=== PATIENT | female | born 1965 | race Caucasian/White ===

== ENCOUNTER 2017-05-09 09:00 | Emergency (ER) | payer OTHER ==
[2017-05-09 09:05] VITALS: O2SAT 98
--- NOTE | 2017-05-09 09:29 | EDPHY ---
HPI/HX/ROS/PE/MDM Narrative: CHIEF COMPLAINT: Facial swelling HPI: The patient is a 52 y/o female complaining of facial swelling onset 2 days ago following a laser procedure at a spa. She describes having a "capillary zapping procedure" on both cheeks at [facility] 3 days ago. She developed pain and swelling by Wednesday and called the facility to discuss her symptoms. She was told it's not typical to have persistent swelling, but that she should improve by day 2. Her swelling and pain has increased and is now located on both cheeks and around both eyes. She denies treatment with any type of medication before or after the procedure. No associated systemic symptoms, fever, rash, airway swelling, or dyspnea. She cannot identify any other precipitating causes for her symptoms and she has never had facial swelling before. REVIEW OF SYSTEMS: Aside from elements discussed in the HPI, a comprehensive 10-point review of systems was reviewed and is negative. PMH: Hypothyroidism, insomnia SOCIAL HISTORY: Lives in [place], , not employed. PHYSICAL EXAM: General:Patient is alert, in no acute distress. Face: Scattered erythematous patches on both cheeks, diffuse facial swelling, no evidence of abscess ENT:Eyes are normal to inspection. ENT inspection normal. No angioedema. Uvula midline. No mucous membrane involvement. Neck: Normal inspection. Full range of motion. Respiratory:No respiratory distress. Breath sounds normal bilaterally. No wheezes or stridor. Cardiovascular: Regular rate and rhythm. Strong peripheral pulses. Normal cap refill. Abdomen:The abdomen is nontender to palpation. There are no peritoneal signs. Back: Normal to inspection. No tenderness to palpation. Skin: Normal color. No rash. Warm and dry. Extremities: Normal appearance. Full range of motion. Neuro: Oriented x3. Normal motor function. Normal sensory function. ED Course: This is a healthy 52 y/o female who presents with a 2-day history of facial swelling secondary to a cosmetic facial laser procedure 3 days ago. She has no systemic symptoms or evidence of respiratory distress. Basic labs are unremarkable. She will be discharged with a script for prednisone and recommendation to follow up with her PCP for unimproved symptoms. Return precautions given. - Data Points Laboratory Results: Laboratory Results 05/09/17 09:28 05/09/17 09:28 05/09/17 05/09/17 09:28 09:28 WBC 4.23 10^3/uL 10^3/uL (3.80-9.50) RBC 4.29 10^6/uL 10^6/uL (4.18-5.33) Hgb 13.2 g/dL g/dL (12.6-16.3) Hct 40.1 % % (38.0-47.0) MCV 93.5 fL fL (81.5-99.8) MCH 30.8 pg pg (27.9-34.1) MCHC 32.9 g/dL g/dL (32.4-36.7) RDW 13.0 % % (11.5-15.2) Plt Count 206 10^3/uL 10^3/uL (150-400) MPV 9.9 fL fL (8.7-11.7) Neut % (Auto) 46.8 % % (39.3-74.2) Lymph % (Auto) 36.2 % % (15.0-45.0) [place] % (Auto) 9.2 % % (4.5-13.0) Eos % (Auto) 5.4 % % (0.6-7.6) Baso % (Auto) 1.7 % % (0.3-1.7) Nucleat RBC Rel Count 0.0 % % (0.0-0.2) Absolute Neuts (auto) 1.98 10^3/uL 10^3/uL (1.70-6.50) Absolute Lymphs (auto) 1.53 10^3/uL 10^3/uL (1.00-3.00) Absolute Monos (auto) 0.39 10^3/uL 10^3/uL (0.30-0.80) Absolute Eos (auto) 0.23 10^3/uL 10^3/uL (0.03-0.40) Absolute Basos (auto) 0.07 10^3/uL 10^3/uL (0.02-0.10) Absolute Nucleated RBC 0.00 10^3/uL 10^3/uL (0-0.01) Immature Gran % 0.7 % % (0.0-1.1) Immature Gran # 0.03 10^3/uL 10^3/uL (0.00-0.10) Sodium 136 mEq/L mEq/L (134-144) Potassium 4.4 mEq/L mEq/L (3.5-5.2) Chloride 107 mEq/L mEq/L (97-110) Carbon Dioxide 20 mEq/l L mEq/l (22-31) Anion Gap 9 mEq/L mEq/L (8-16) BUN 9 mg/dL mg/dL (7-23) Creatinine 0.9 mg/dL mg/dL (0.6-1.0) Estimated GFR > 60 Glucose 86 mg/dL mg/dL (70-100) Calcium 9.1 mg/dL mg/dL (8.5-10.4) General Time Seen by Provider: 05/09/17 09:06 Initial Vital Signs: Initial Vital Signs Temperature (C) 36.8 C 05/09/17 09:02 Heart Rate 83 05/09/17 09:02 Respiratory Rate 18 05/09/17 09:02 Blood Pressure 103/77 05/09/17 09:02 O2 Sat (%) 98 05/09/17 09:02 O2 Delivery Mode Room Air Allergies/Adverse Reactions: penicillin V potassium [From Pen-Vee K] Allergy (Intermediate, Verified 09:02) "trouble breathing" as infant Home Medications: Medication Instructions Recorded SYNTHROID 12/26/09 Seroquel 12/26/09 predniSONE 60 mg PO DAILY #9 tab 05/09/17 Departure - Departure Disposition: Home, Routine, Self-Care Clinical Impression: Facial swelling Condition: Good Instructions: Edema (ED) Additional Instructions: 1. Take prednisone as prescribed for swelling. 2. Follow up with your primary care provider tomorrow without fail. 3. Return to the ED tomorrow if symptoms have not improved or if you develop throat swelling, fever, difficulty breathing, or other worsening of condition. Referrals: NONE *PRIMARY CARE P,. [Primary Care Provider] - As per Instructions Howard Vora MD [Medical Doctor] - As per Instructions Prescriptions: predniSONE 60 mg PO DAILY #9 tab Report Scribed for: Javier Tucker Report Scribed by: Arlet Anaya Date of Report: 05/09/17 Time of Report: 09:35 Physician Review and Approval Statement: Portions of this note were transcribed by an ED scribe. I personally performed the history, physical exam, and medical decision making; and confirm the accuracy of the information in the transcribed note.
[2017-05-09 09:33] LABS: % IMMATURE GRANULYOCYTES 0.7 % (0.0-1.1); ABSOLUTE IMMATURE GRANULOCYTES 0.03 10^3/uL (0.00-0.10); ADD DIFF? NO; ADD MORPH? NO; ADD SCAN? NO; ATYPICAL LYMPHOCYTE FLAG 20 (0-99); FRAGMENT RBC FLAG 0 (0-99); HEMATOCRIT 40.1 % (38.0-47.0); HEMOGLOBIN 13.2 g/dL (12.6-16.3); LEFT SHIFT FLG 0 (0-99); LIPEMIA HEMOLYSIS FLAG 80 (0-99); MEAN CELL HEMOGLOBIN 30.8 pg (27.9-34.1); MEAN CELL HEMOGLOBIN CONCENTR. 32.9 g/dL (32.4-36.7); MEAN CELL VOLUME 93.5 fL (81.5-99.8); MEAN PLATELET VOLUME 9.9 fL (8.7-11.7); PLATELET CLUMPS FLAG 0 (0-99); PLATELET COUNT 206 10^3/uL (150-400); RED BLOOD CELL COUNT 4.29 10^6/uL (4.18-5.33)
[2017-05-09 09:47] LABS: ANION GAP 9 mEq/L (8-16); CALCIUM 9.1 mg/dL (8.5-10.4); CARBON DIOXIDE 20 mEq/l (22-31); CHLORIDE 107 mEq/L (97-110); CREATININE 0.9 mg/dL (0.6-1.0); GLOMERULAR FILTRATION RATE > 60; GLUCOSE 86 mg/dL (70-100); POTASSIUM 4.4 mEq/L (3.5-5.2); SODIUM 136 mEq/L (134-144)
[2017-05-09] MEDS ORDERED: predniSONE 20 MG TAB PO ONE (10:03)
[2017-05-09 10:46] VITALS: BP 110/72; PULSE 78; RESP 16; TEMP 97.7
== END 2017-05-09 10:46 | disposition home or self-care (01) ==
DX: R22.0 Localized swelling, mass and lump, head (principal)

== ENCOUNTER 2017-06-13 11:17 | Emergency (ER) | payer OTHER ==
[2017-06-13 11:23] VITALS: PULSE 86; TEMP 98.2
--- NOTE | 2017-06-13 11:56 | EDPHY ---
H & P Time Seen by Provider: 06/13/17 11:33 HPI/ROS: Chief complaint. Sore throat HPI. 52-year-old female presents with sore throat for 4 days. She was seen at urgent care 2 days ago and started on a Z-Sohail despite negative strep screen. Her sore throat continues and getting worse. Hurts to swallow. Denies fever and chills. No cough. No known exposures. She feels she has swelling deeper in her throat. She noted white spots on the back of her throat. ROS Constitutional. no fever/chills, no weakness Eyes. no problems with vision ENT. Sore throat Cardiovascular. no chest pain Respiratory. no shortness of breath, no cough Abdominal. no abdominal pain, no nausea/vomiting, no diarrhea . no problems urinating MS. no calf pain/swelling, no neck/back pain, no joint pain Skin. no rash Lymph. no swollen glands Neuro. no headache, no dizziness, no difficulty walking or with speech Past Medical/Surgical History: Hypothyroid, insomnia Social History: , nonsmoker, no alcohol Smoking Status: Former smoker Physical Exam: General Appearance: Alert pleasant well-developed female mild distress vital signs are stable. Afebrile Eyes: Pupils equal and round no pallor or injection. ENT, tympanic membranes are normal. Pharynx is injected without exudate. No evidence of peritonsillar abscess. No stridor. She is swallowing secretions. Respiratory: There are no retractions, lungs are clear to auscultation. Cardiovascular: Regular rate and rhythm. Gastrointestinal: Abdomen is soft and nontender, no masses, bowel sounds normal. Neurological: Awake and alert, sensory and motor exams grossly normal. Skin: Warm and dry, no rashes. Musculoskeletal: Neck is supple nontender. Extremities symmetrical, full range of motion. Psychiatric: Patient is oriented X 3, there is no agitation. Constitutional: Initial Vital Signs Temperature (C) 36.8 C 06/13/17 11:18 Heart Rate 86 06/13/17 11:18 Respiratory Rate 18 06/13/17 11:18 Blood Pressure 104/81 H 06/13/17 11:18 O2 Sat (%) 96 06/13/17 11:18 O2 Delivery Mode Room Air Allergies/Adverse Reactions: penicillin V potassium [From Pen-Vee K] Allergy (Intermediate, Verified 11:18) "trouble breathing" as infant Home Medications: Medication Instructions Recorded SYNTHROID 12/26/09 AZITHROMYCIN [Z-PACK] 250 mg PO DAILY 06/13/17 LORazepam [Ativan (*)] 1 mg PO 06/13/17 Lidocaine 2% Viscous 5 ml MM Q4-6PRN PRN #100 ml 06/13/17 Zolpidem Tartrate [Ambien 5MG (*)] 5 mg PO HS 06/13/17 Medical Decision Making - Diagnostics Imaging Results: Imaging Impressions Soft Tissue Neck X-Ray 06/13/17 12:04 Impression: Cervical soft tissues negative for acute abnormality. Soft tissue a x-ray of the neck is interpreted by me is negative for acute swelling or epiglottitis Procedures: Decadron orally ED Course/Re-evaluation: Re-evaluation 1:00 p.m. patient is stable. The patient and I discussed imaging study results, treatment plan including criteria for return and importance of follow-up and further evaluation. She expresses understanding and agreement Differential Diagnosis: This is likely viral syndrome. She had a negative strep test and has not had improvement with antibiotics. I also considered epiglottitis - Data Points Medications Given: Discontinued Medications Dexamethasone (Decadron) 8 mg PO EDNOW ONE Stop: 06/13/17 12:05 Last Admin: 06/13/17 12:08 Dose: 8 mg Departure - Departure Disposition: Home, Routine, Self-Care Clinical Impression: Acute pharyngitis Condition: Good Instructions: Pharyngitis (ED) Additional Instructions: Tylenol 1000 mg every 6 hours, ibuprofen 600 mg every 6 hours as needed for pain and fever. May alternate these every 3 hours. Viscous lidocaine to gargle and spit to help with pain Return for worsening symptoms. Recheck in 2 days if not improved Referrals: Echo Renae PA [Primary Care Provider] - 2-3 days, if not improved Prescriptions: Lidocaine 2% Viscous 5 ml MM Q4-6PRN PRN #100 ml PRN Reason: Sore Throat
[2017-06-13] MEDS ORDERED: DEXAMETHASONE 4 MG TAB PO ONE (12:04)
[2017-06-13 13:23] VITALS: BP 121/95; RESP 16; O2SAT 95
== END 2017-06-13 13:22 | disposition home or self-care (01) ==
DX: J02.9 Acute pharyngitis, unspecified (principal); Z87.891 Personal history of nicotine dependence

== ENCOUNTER → 2017-10-13 | Outpatient (CLI) | payer OTHER | LOC: FIMAGING 15:47 | PROVIDERS: ATTEND Physician Assistant | DX: Z12.31 Encounter for screening mammogram for malignant neoplasm of breast (principal) ==

== ENCOUNTER 2017-11-14 17:44 | Inpatient (IN) | payer OTHER ==
--- NOTE | 2017-11-14 18:17 | EDPHY ---
H & P Time Seen by Provider: 11/14/17 17:54 HPI/ROS: Chief complaint. Flu symptoms HPI. 52-year-old female presents emergency department with achiness, cough, headache, fever. Symptoms began mildly after plane travel for 5 days ago but then really she started getting much more ill yesterday with fever to 102 degrees. Upper airway congestion. Slight sore throat. Nonproductive cough. No shortness of breath or chest discomfort. Generalized myalgias and achy. No abdominal pain vomiting or diarrhea. Exposure was recent travel and being on an airplane. ROS Constitutional. Fever and chills Eyes. no problems with vision ENT. Sore throat congestion Cardiovascular. no chest pain Respiratory. No shortness of breath but nonproductive cough Abdominal. no abdominal pain, no nausea/vomiting, no diarrhea . no problems urinating MS. no calf pain/swelling, no neck/back pain, no joint pain Skin. no rash Lymph. no swollen glands Neuro. Headache Past Medical/Surgical History: Hypothyroid, insomnia Social History: , nonsmoker, no alcohol Smoking Status: Former smoker Physical Exam: General Appearance: Alert well-developed female mild distress vital signs are stable Eyes: Pupils equal and round no pallor or injection. ENT, tympanic membranes are normal. Pharynx slightly injected without exudate. Mucous membranes are moist Respiratory: No retractions but mild inspiratory and expiratory rhonchi Cardiovascular: Regular rate and rhythm. Gastrointestinal: Abdomen is soft and nontender, no masses, bowel sounds normal. Neurological: Awake and alert, sensory and motor exams grossly normal. Skin: Warm and dry, no rashes. Musculoskeletal: Neck is supple nontender. Extremities symmetrical, full range of motion. Psychiatric: Patient is oriented X 3, there is no agitation. Constitutional: Initial Vital Signs Temperature (C) 36.8 C 11/14/17 17:50 Heart Rate 84 11/14/17 17:50 Respiratory Rate 18 11/14/17 17:50 Blood Pressure 121/79 H 11/14/17 17:50 O2 Sat (%) 97 11/14/17 17:50 O2 Delivery Mode Room Air Allergies/Adverse Reactions: penicillin V potassium [From Pen-Vee K] Allergy (Intermediate, Verified 17:49) "trouble breathing" as Home Medications: Medication Instructions Recorded LORazepam [Ativan (*)] 1 mg PO HS 06/13/17 Levothyroxine [Synthroid 150 mcg 150 mcg PO DAILY06 11/14/17 (*)] QUEtiapine FUMARATE [Seroquel 200 200 mg PO HS 11/14/17 mg (*)] ZOLPIDEM TARTRATE [Ambien CR 12.5 25 mg PO HS 11/14/17 mg] Medical Decision Making - Diagnostics Imaging Results: Imaging Impressions Chest X-Ray 11/14/17 18:26 Impression: Right cardiophrenic mass which could be mediastinal or less likely related to a lung mass. CT chest with contrast is recommended for further evaluation. Findings discussed with Red Lopez MD on November 14, [address] 11/14/17 19:06 Impression: 1. Benign pericardial cyst accounting for the finding on plain films. 2. Indeterminate hepatic hypodensity which could be related to an hemangioma, clustered cysts, or other etiology. MR abdomen with contrast is recommended for further evaluation. 3. Circumscribed 6 mm right lower lobe nodule. The 2017 Fleischner Society Guidelines recommend followup unenhanced chest CT in 6-12 months for a low risk patient, then consider additional followup at 18-24 months. For a high risk patient, followup CT is recommended in 6-12 months, then again at 18-24 months if there is no change. 4. Bronchitis. 5. Additional findings, as above. Findings discussed with Red Lopez MD on November 14, 2017 at 2032 hours. Chest x-ray shows a right cardiophrenic mass. CT is recommended CT chest shows that this is a benign pericardial cyst. There are some incidental findings of a right lower lobe nodule and hypodensity likely hemangioma in the liver. Procedures: Flu swab and chest x-ray ED Course/Re-evaluation: IV normal saline. Patient is given Tamiflu. The CT shows that this is benign pericardial cyst. Patient's influenza test is positive for flu B. She has hyponatremia. I consulted and discussed the case with Dr. Pappas, hospitalist, who agrees to the admission. Patient, her , and I discussed imaging, lab test. We discussed treatment plan including recommendation for admission. They expressed understanding and agreement Differential Diagnosis: Likely this is SIADH secondary to influenza B. I also considered lung tumor. Her infection and fever are likely due to the influenza - Data Points Laboratory Results: Laboratory Results 11/14/17 19:15 11/14/17 19:15 11/14/17 11/14/17 11/14/17 19:15 19:15 18:40 WBC 2.53 10^3/uL L 10^3/uL (3.80-9.50) RBC 4.19 10^6/uL 10^6/uL (4.18-5.33) Hgb 12.9 g/dL g/dL (12.6-16.3) Hct 36.9 % L % (38.0-47.0) MCV 88.1 fL fL (81.5-99.8) MCH 30.8 pg pg (27.9-34.1) MCHC 35.0 g/dL g/dL (32.4-36.7) RDW 12.0 % % (11.5-15.2) Plt Count 170 10^3/uL 10^3/uL (150-400) MPV 9.1 fL fL (8.7-11.7) Neut % (Auto) Not Reported Lymph % (Auto) Not Reported [place] % (Auto) Not Reported Eos % (Auto) Not Reported Baso % (Auto) Not Reported Nucleat RBC Rel Count 0.0 % % (0.0-0.2) Absolute Neuts (auto) Not Reported Absolute Lymphs (auto) Not Reported Absolute Monos (auto) Not Reported Absolute Eos (auto) Not Reported Absolute Basos (auto) Not Reported Absolute Nucleated RBC 0.00 10^3/uL 10^3/uL (0-0.01) Immature Gran % Not Reported Seg Neutrophils % 58 % % Band Neutrophils % 5 % % Lymphocytes % 22 % % Monocytes % 13 % % Eosinophils % 2 % % Immature Gran # Not Reported Absolute Seg Neuts 1.47 10^/uL L 10^/uL (1.70-6.50) Absolute Band Neuts 0.13 10^3/uL 10^3/uL (0.00-0.70) Absolute Lymphocytes 0.56 10^3/uL L 10^3/uL (1.00-3.00) Absolute Monocytes 0.33 10^3/uL 10^3/uL (0.30-0.80) Absolute Eosinophils 0.05 10^3/uL 10^3/uL (0.03-0.40) RBC/WBC/PLT Morphology NORMAL (NORMAL) Platelet Estimate ADEQUATE (ADEQ) Sodium 121 mEq/L L mEq/L (135-145) Potassium 4.2 mEq/L mEq/L (3.5-5.2) Chloride 91 mEq/L L mEq/L (97-110) Carbon Dioxide 20 mEq/l L mEq/l (22-31) Anion Gap 10 mEq/L mEq/L (8-16) BUN 7 mg/dL mg/dL (7-23) Creatinine 0.7 mg/dL mg/dL (0.6-1.0) Estimated GFR > 60 Glucose 90 mg/dL mg/dL (70-100) Calcium 8.9 mg/dL mg/dL (8.5-10.4) Nasal Influenza A PCR NEGATIVE FOR FLU A (NEGATIVE) Nasal Influenza B PCR FLU B DETECTED H (NEGATIVE) RSV (PCR) NEGATIVE FOR RSV (NEGATIVE) Medications Given: Discontinued Medications Sodium Chloride (Ns) 1,000 mls @ 0 mls/hr IV EDNOW ONE; Wide Open PRN Reason: Protocol Stop: 11/14/17 19:06 Last Admin: 11/14/17 19:30 Dose: 1,000 mls Oseltamivir Phosphate (Tamiflu) 75 mg PO EDNOW ONE Stop: 11/14/17 21:00 Last Admin: 11/14/17 21:27 Dose: 75 mg Departure - Departure Disposition: [facility] Clinical Impression: Influenza, Hyponatremia Condition: Fair
[2017-11-14] MEDS ORDERED: NS 1,000 ML IV ONE (19:05)
[2017-11-14] MEDS ORDERED: IOPAMIDOL (ISOVUE-300) 100 ML BTL ONE (19:16)
[2017-11-14 19:24] LABS: PLATELET COUNT 170 10^3/uL (150-400)
[2017-11-14] MEDS ORDERED: OSELTAMIVIR PHOSPHATE 75 MG CAP PO ONE (20:59)
[2017-11-14] MEDS ORDERED: ONDANSETRON 4 MG/2 ML VIAL IVP PRN (22:55)
[2017-11-14] MEDS ORDERED: ACETAMINOPHEN 325 MG TAB PO PRN (22:55)
[2017-11-14] MEDS ORDERED: LORazepam 0.5 MG TAB PO PRN (22:55)
[2017-11-14] MEDS ORDERED: NS 1,000 ML IV SCH (23:00)
[2017-11-14] MEDS ORDERED: QUEtiapine FUMARATE 200 MG TAB PO SCH (23:15)
[2017-11-14] MEDS ORDERED: ZOLPIDEM TARTRATE 25 MG PO SCH (23:45)
[2017-11-15 05:09] LABS: PLATELET COUNT 186 10^3/uL (150-400)
[2017-11-15] MEDS ORDERED: LEVOTHYROXINE 150 MCG TAB PO SCH (06:00)
[2017-11-15] MEDS ORDERED: 1/2 NS 1,000 ML IV SCH (06:45)
--- NOTE | 2017-11-15 07:22 | GHP ---
[f rep st] HISTORY AND PHYSICAL DATE OF ADMISSION: 11/14/2017 SOURCE: Patient provides history, appears reliable. Her EMR was reviewed and case discussed with [facility] hospitalist provider. CHIEF COMPLAINT: Fever. HISTORY OF PRESENT ILLNESS: This is a very pleasant 52-year-old female with past medical history sig nificant for hypothyroidism, anemia, and insomnia, who presents to the emergency department today wit h complaint of significant fever to 102 Fahrenheit at home. Patient reports that she has been feelin g ill with fevers, cough, headaches, and myalgias for the past 5 days. Patient did recently travel o n an airplane and reports possible exposure there, but otherwise, no known direct sick contacts. She has not received her flu vaccine this year. Patient became concerned when her temperature phyllis to 1 02 Fahrenheit and she presented to the emergency department. She has had a nonproductive cough, sore throat, hoarseness. She denies shortness of breath or chest pain. Patient denies any nausea, vomit ing, or diarrhea. Patient reports that today she had been drinking an excessive amount of free water. She states that she drank so much right before she came to the emergency department that when she arrived, she had to urinate 15 times. Patient was not able to quantify, but had noted a significant amount. REVIEW OF SYSTEMS: GENERAL: Positive for fevers, chills. ENT: Congestion, sore throat. EYES: No acute changes in vision or ocular pain. CV: No chest pain, palpitations. RESPIRATORY: Patient is denying any dyspnea, but she does report feeling like she has decreased air movement related to her respiratory symptoms. Positive for nonproductive cough as noted above. GI: Negative for nausea, vo miting, diarrhea. : No dysuria or hematuria. MUSCULOSKELETAL: Patient reports diffuse myalgias. No acute joint pain. NEURO: Positive for headache during fever. Remainder of review of systems negative, except as noted above. ALLERGIES: Penicillin. HOME MEDICATIONS: Ambien 25 mg p.o. h.s. CR, Seroquel 200 mg p.o. h.s., levothyroxine 150 mcg p.o. d aily, Ativan 1 mg p.o. h.s. PAST MEDICAL HISTORY: Significant for hypothyroidism, anemia, and insomnia. PAST SURGICAL HISTORY: None. FAMILY HISTORY: Significant for maternal aunt with history of esophageal cancer. Sister with thyroi d cyst. Brother is healthy. Father due to a motorcycle accident. Paternal grandfather wit h history of liver disease. Paternal grandmother in 80s for reasons unknown. Maternal mariola perez in his 80s from stroke. Maternal grandmother in her sleep at 83. SOCIAL HISTORY: Patient is . She lives with her . She has grown children. She quit smoking some time ago. She does not drink any alcohol. No illicit drugs. CODE STATUS: Full. PHYSICAL EXAMINATION: VITAL SIGNS UPON ARRIVAL TO THE EMERGENCY DEPARTMENT: Blood pressure 121/79, heart rate 84, respiratory rate 18, O2 sat is 97% on room air with temperature 36.8. VITAL SIGNS CUR RENTLY AVAILABLE: Blood pressure 126/84, heart rate 73, respiratory rate 16, O2 sat 97% on room air with temperature 36.9. GENERAL: No acute distress. Very pleasant, acutely ill-appearing adult noelle valdes who is resting quietly in bed. She is slightly sweaty, but nontoxic appearing. Patient does appea r quite fatigued. She keeps her eyes closed for most of the interview, but is interactive and pleasa nt. HEAD: Normocephalic, atraumatic. EYES: Extraocular muscles grossly intact, but limited second diana to patient keeping her eyes closed. Pupils were evaluated and symmetric reactivity to light bila terally and symmetric. No scleral icterus or conjunctival injection. ENT: Mucous membranes appear slightly dry. No oropharyngeal erythema. Dentition intact. NECK: Supple. Trachea midline. CV: Regular rate and rhythm. No murmurs, rubs, or gallops appreciated. RESPIRATORY: Unlabored breathin g. Lungs are clear to auscultation bilaterally. No wheezes, rales, or rhonchi. ABDOMEN: Positive b owel sounds. Soft, nontender to palpation. : No Baker catheter in place. EXTREMITIES: Patient without any cyanosis, clubbing, or edema appreciated. Patient with 2+ pedal pulses. NEURO: Grossly nonfocal. No facial drooping. Patient able to sit up independently. Moves all extremities. Stren gth grossly normal. PSYCH: Patient thought process, content, and questions are all appropriate. Sh e is pleasant and cooperative. LABORATORY STUDIES: 1. Flu B positive. 2. WBC initially 2.53, H and H are 12.9 and 36.9, platelet count is 170. No bands. 3. Initial sodium 121, potassium 4.2, chloride 91, CO2 is 20, anion gap 10, BUN 7, creatinine 0.7, G FR greater than 60, glucose 90, calcium 8.9. Patient's sodium did increase to 126, then subsequently 132. Potassium 4.4, chloride 99, CO2 is 21, anion gap 12, BUN is 15, creatinine 0.8, GFR greater th an 60, glucose 93, calcium 9.4. Phosphorus 4.3. Magnesium 1.9. Negative RSV. 4. Chest x-ray: Image and report reviewed myself showing right cardiophrenic mass, which could be m ediastinal or less likely related to lung mass. CT chest recommended. 5. CT chest with contrast: Image and report reviewed. Benign pericardial cyst accounting for findi ng on plain films, intermediate hepatic hypodensity could be related to hemangioma, clustered cyst, o r other etiology. Abdomen with contrast recommended for further evaluation. Circumscribed 6 mm righ t lower lobe nodule; recommending follow up in 6-12 months for low risk patient. Bronchitis. ASSESSMENT AND PLAN: Pleasant 52-year-old female who presents with 5-day history of fevers, chills, cough, and upper respiratory-type symptoms. 1. Hyponatremia: Patient endorses a large volume of free water prior to arrival in the emergency de partment that prompted her to void 15 times per her report, large volume, 1000 mL was documented. Rubio hernandez additionally received intravenous fluids overnight. Suspect possibly this is an acute sodium c hange. Patient has had fairly rapid correction, as she does appear slightly dehydrated as well. Facundo l continue with intravenous fluid replacement. Serial BMPs will continue. 2. Influenza B: Patient has been started on Tamiflu and supportive care with respiratory precaution s. 3. Pericardial cyst: Benign process on CTA. 4. Hepatic lesion with recommendations for MRI: Suspect hemangioma. Patient denying any abdominal pain. Her LFTs were not fully evaluated, so will add on these labs. Patient with an indeterminate h epatic hypodensity, possibly related to hemangioma. She also has noted scattered hypodensities in th e liver too small to characterize. Consideration for MRI abdomen once patient is stabilized. 5. Lung nodule: Follow up with CT in 6-12 months. 6. Hypothyroidism: Resume patient's levothyroxine. 7. Insomnia: Continue patient's as-needed medications. 8. Fluid, electrolyte, nutrition: Patient is status post intravenous fluid bolus and normal saline infusion. She has corrected to 132 slightly rapidly, but I suspect that this is likely due to acute free water. Will change patient to half-normal saline. Repeat a BMP later this morning. Electrolyt es will be monitored; replaced if needed. Patient will be on a regular diet. Consider fluid restric tion at this time until electrolytes are stabilized. 9. Prophylaxis: Sequential compression devices, Lovenox if patient should stay additional day. 10. Code status: Full. 11. Disposition: Patient has been admitted to inpatient status on the medical floor secondary to th e severity of her hyponatremia and her acute illness. /[id number]/MODL
[2017-11-15] MEDS ORDERED: ENOXAPARIN 40 MG/0.4 ML SYR SC SCH (09:00)
[2017-11-15] MEDS: OSELTAMIVIR PHOSPHATE 75 MG CAP PO SCH ×2 (10:44→18:17)
--- NOTE | 2017-11-15 11:30 | PDMN ---
Medical Necessity Medical necessity: influenza B + with hyponatremia, fever - further monitoring and eval, tx needed > 2 midnights anticipated
[2017-11-15] MEDS: HYDROCODONE/APAP 5/325 TAB PO PRN ×3 (12:57→20:28)
[2017-11-15] MEDS ORDERED: D5W 1,000 ML IV SCH (14:00)
[2017-11-15] MEDS ORDERED: GADOBUTROL 10 ML VIAL IVP ONE (14:37)
--- NOTE | 2017-11-15 15:45 | ASMTCASEMG ---
Living Arrangements What is your living Answers: With Spouse arrangement? Who do you live with? Type Of Residence What kind of residence do Answers: House you live in? Discharge Plan Comments Coordination Status Comments Notes: Pt is a 52 y/o female admitted for flu b and hyponatremia. Pt will most likely d/c independent when medically stable. No therapies ordered at this time. CM available for changes. Plan: Independent Date Signed: 11/15/2017 03:44 PM Electronically Signed By:JERSEY Castillo
[2017-11-15 16:14] VITALS: PULSE 66; RESP 16
[2017-11-15 19:48] VITALS: BP 98/66; TEMP 98; O2SAT 94
--- NOTE | 2017-11-15 20:02 | PDDCSUM ---
Discharge Summary Discharge Summary: DISCHARGE SUMMARY FOLLOW-UP ITEMS: Repeat chest CT in 6 months DATE OF ADMISSION: 11/14/2017 DATE OF DISCHARGE: 11/15/2017 DISCHARGE DIAGNOSES: 1. Acute hyponatremia 2. Acute influenza B 3. Right lower lobe pulmonary nodule 6 mm 4. Benign appearing hepatic cysts 5. Benign appearing pericardial cyst 6. Acute metabolic acidosis 7. Acute leukopenia most likely 2nd to viral syndrome CONSULTATIONS: None PROCEDURES / IMAGING: Abdominal MRI demonstrating cluster of benign-appearing cysts in the liver comma chest CT demonstrating benign-appearing pericardial cyst adjacent on the right, chest CT demonstrating right lower lobe 6 mm pulmonary nodule CHIEF COMPLAINT: General malaise SUBJECTIVE: Patient is feeling well at time discharge, she is tolerating oral intake, she is moving her bowels PHYSICAL EXAM ON DISCHARGE: Systolic blood pressure is 100-140, heart rate 70, afebrile overnight, satting well on room air, alert awake oriented x3, abdomen is soft nontender nondistended bowel sounds are present LABS ON DISCHARGE: Serum sodium is 137, creatinine 0.8, serum bicarbonate 21 HOSPITAL COURSE BY PROBLEM: The patient presented with acute severe hyponatremia serum sodium level of 121 in the setting of primary polydipsia as well as acute hypovolemia in the setting of influenza B infection. Patient had been drinking a substantial amount of free water in the setting of her recent illness, and she was placed on a fluid restriction of 2 L a day, as well as given IV normal saline. Her serum sodium level did improve, and she phyllis at a rate of less than 1 milliequivalent/hour. Her acute metabolic acidosis also improved after receiving IV fluids. She continued to experience some lethargy and general malaise, but she was all feeling better after receiving Tamiflu. She underwent extensive evaluation for incidental findings noted on chest imaging, including a benign-appearing pericardial cyst, right lower lobe pulmonary nodule, and a cluster of hepatic cysts. These were evaluated with an abdominal MRI, a chest CT, and no further workup is indicated at this time other than surveillance CT at approximately 6 months for her pulmonary nodule. The patient was informed of all of this information and she feels comfortable being discharged with supportive care including Tamiflu and as needed Vicodin if she experiences any aches or pains associated with her influenza. We recommend that she follow up with primary care provider and have a repeat CBC and electrolyte panel drawn at that time. DISCHARGE MEDICATIONS: Please see official discharge medication reconciliation sheet in chart , Tamiflu 75 mg twice daily for 4 subsequent days, Vicodin as needed for symptomatic control, continue other medications. DISCHARGE INSTRUCTIONS: Please follow up with primary care provider in 3-5 days. TIME SPENT: Greater than 30 minutes were spent on direct patient care, as well as discharge planning and preparation. The patient experienced a anticipated rapid recovery, much quicker than originally anticipated by the admitting provider, Dr. Eneida Covington. Given that the patient's serum sodium level has stabilized, she does not require ongoing inpatient care, is appropriate for her to discharge at this time. Her rapid recovery was a direct result of the highly efficient and effective care of the patient's treating hospitalist providers as well as her nursing and ancillary staff.
[2017-11-15] MEDS ORDERED: OXcarbazepine 300 MG TAB PO SCH (21:00)
[2017-11-15] MEDS ORDERED: LORazepam 1 MG TAB PO SCH (21:00)
== END 2017-11-15 20:45 | disposition home or self-care (01) | DRG 194 ==
LOC: F3E 21:55
PROVIDERS: ADMIT Internal Medicine; ATTEND Internal Medicine
DX: J10.1 Influenza due to other identified influenza virus with other respiratory manifestations (principal); E87.1 Hypo-osmolality and hyponatremia; E87.2 Acidosis; E86.1 Hypovolemia; I31.8 Other specified diseases of pericardium; R91.1 Solitary pulmonary nodule; K76.89 Other specified diseases of liver; D72.819 Decreased white blood cell count, unspecified; R63.1 Polydipsia; E03.9 Hypothyroidism, unspecified; G47.00 Insomnia, unspecified; D64.9 Anemia, unspecified; Z87.891 Personal history of nicotine dependence; Z88.0 Allergy status to penicillin
CPT/HCPCS: A9585; J1650; Q9967